=== PATIENT | female | born 1950 | race American Indian/Alaskan Native ===

== ENCOUNTER 2019-09-02 07:20 | Day surgery (SDC) | payer MEDICARE, OTHER ==
[2019-09-02] MEDS ORDERED: SODIUM CHLORIDE 0.9% 1000 ML 1,000 ML IV SCH (08:00)
--- NOTE | 2019-09-02 08:48 | Anesthesia Consultation ---
Anesthesia Consult and Med Hx Date of service: 09/02/19 - Airway Anesthetic Teeth Evaluation: Good (loose #24) ROM Head & Neck: Adequate Mental/Hyoid Distance: Adequate Mallampati Class: Class IV Intubation Access Assessment: Possibly Difficult - Pre-Operative Health Status ASA Pre-Surgery Classification: ASA3 Proposed Anesthetic Plan: MAC - Pulmonary Hx Smoking: No Hx Asthma: No Hx Respiratory Symptoms: No SOB: Yes (due to "leaky valve") COPD: No Home Oxygen Therapy: No Hx Pneumonia: No Hx Sleep Apnea: Yes - Cardiovascular System Hx Hypertension: Yes Hx Coronary Artery Disease: No Hx Heart Attack/AMI: No Hx Angina: No Hx Percutaneous Transluminal Coronary Angioplasty (PTCA): No Hx Cardia Arrhythmia: Yes (states "yes" but not sure what arrhythmia) Hx Pacemaker: No Hx Internal Defibrillator: No Hx Valvular Heart Disease: Yes (states "She thinks aortic regurgitation") Hx Heart Murmur: Yes Hx Peripheral Vascular Disease: No - Central Nervous System Hx Neuromuscular Disorder: No Hx Seizures: No CVA: No Hx Back Pain: No Hx Psychiatric Problems: No - Gastrointestinal Hx Ulcer: No Hx Gastroesophageal Reflux Disease: No - Endocrine Hx Renal Disease: No Hx End Stage Renal Disease: No Hx Cirrhosis: No Hx Liver Disease: No Hx Insulin Dependent Diabetes: No Hx Non-Insulin Dependent Diabetes: No Hx Thyroid Disease: No Hx Hypothyroidism: No Hx Hyperthyroidism: No - Hematic Hx Anemia: No Hx Sickle Cell Disease: No - Other Systems Hx Alcohol Use: No Hx Substance Use: No Hx Cancer: No Hx Obesity: Yes
--- NOTE | 2019-09-02 08:52 | Anesthesia Day of Surgery ---
Anesthesia Day of Surgery - Day of Surgery Patient Examined: Yes Patient H&P Reviewed: Yes Patient is NPO: Yes Beta Blockers: No
[2019-09-02] MEDS ORDERED: propofoL 200 MG/20 ML VIAL IV ONE ×2 (09:07)
[2019-09-02 09:55] VITALS: BP 136/84
[2019-09-02] MEDS ORDERED: LIDOCAINE MPF (2%) 20 MG/1 ML VIAL 5 ML ONE (10:00)
--- NOTE | 2019-09-02 10:39 | Procedure Note ---
Date of procedure: 09/02/19 Pre-op diagnosis: Dyspepsia, Reflux, Pre-bariatric EGD Post-op diagnosis: same Procedure: The patient was placed on the stretcher in the left lateral decubitus position. Following time out, the patient was then sedated and the scope passed down the posterior oropharynx without difficulty. The esophagus was traversed and no abnormalities were identified. Upon entering into the esophagus it was noted that the patient had moderated esophagitis. Entering into the stomach the patient had a moderate amount of bile in the stomach with some mild gastritis. The duodenum showed no lesions. Retroflexion revealed a 3 cm hiatal hernia with no other abnormalities. The remainder of the exam was unremarkable. The scope was removed and the procedure terminated. The patient was sent to recovery in satisfactory condition. Findings: 3 cm hiatal hernia, esophagits and bile reflux Anesthesia: MAC Surgeon: JENIFFER PICKETT Estimated blood loss: none Pathology: none Condition: stable Disposition: PACU
== END 2019-09-02 10:03 | disposition home or self-care (01) ==
LOC: GIO 07:20
PROVIDERS: ATTEND Specialist
DX: K30 Functional dyspepsia (principal); K21.0 Gastro-esophageal reflux disease with esophagitis; K44.9 Diaphragmatic hernia without obstruction or gangrene; I42.9 Cardiomyopathy, unspecified; I10 Essential (primary) hypertension; G47.30 Sleep apnea, unspecified; E66.9 Obesity, unspecified; M19.90 Unspecified osteoarthritis, unspecified site; Z98.890 Other specified postprocedural states; Z88.5 Allergy status to narcotic agent; Z79.899 Other long term (current) drug therapy; Z90.49 Acquired absence of other specified parts of digestive tract; Z68.42 Body mass index [BMI] 45.0-49.9, adult; Z98.84 Bariatric surgery status
CPT/HCPCS: 43235; J2704